=== PATIENT | female | born 1980 | race American Indian/Alaskan Native ===

== ENCOUNTER 2017-03-12 01:57 | Emergency (ER) | payer BC ==
[2017-03-12 03:09] LABS: Bacteria,Urine 1+ /HPF (Negative); Bilirubin,Urine NEG (Negative); Blood,Urine NEG (Negative); Ketones,Urine NEG (Negative); Leukocyte Esterase,Urine SM (Negative); Mucus,Urine 3+ /HPF; Nitrite,Urine NEG (Negative); Protein,Urine <15 mg/dL mg/dL (Negative); Urobilinogen,Urine < 2.0 mg/dL (<2.0)
[2017-03-12 03:21] LABS: Basophils % (Auto) 0.6 % (0.0-1.8); Hematocrit 35.5 % (30.3-42.9); Hemoglobin 11.7 gm/dl (10.1-14.3); Mean Corpuscular HGB Conc 33 % (30-34); Mean Corpuscular Hemoglobin 30 pg (28-32); Mean Corpuscular Volume 91 fl (79-97); Platelet Count 233 K/mm3 (140-440); Red Blood Count 3.89 M/mm3 (3.65-5.03); Red Cell Distribution Width 13.7 % (13.2-15.2); White Blood Count 4.7 K/mm3 (4.5-11.0)
[2017-03-12 03:42] LABS: Alanine Aminotransferase 27 units/L (7-56); Albumin 3.7 g/dL (3.9-5); Albumin/Globulin Ratio 1.3 %; Alkaline Phosphatase 58 units/L (35-129); Anion Gap 15 mmol/L; Blood Urea Nitrogen 7 mg/dL (7-17); Calcium 8.7 mg/dL (8.4-10.2); Carbon Dioxide 24 mmol/L (22-30); Chloride 103.5 mmol/L (98-107); Glucose 84 mg/dL (65-100); Lipase 23 units/L (13-60); Potassium 3.6 mmol/L (3.6-5.0); Sodium 139 mmol/L (137-145); Total Protein 6.6 g/dL (6.3-8.2)
[2017-03-12] MEDS ORDERED: MORPHINE IV ONE (09:26)
[2017-03-12] MEDS ORDERED: NACL 0.9% 1000 ML 1,000 ML IV ONE (09:26)
--- NOTE | 2017-03-12 09:27 | Emergency Department Report ---
ED General Adult HPI - General Chief complaint: Abdominal Pain Stated complaint: DIZZINESS/BODY PAIN/STOMACH SWOLLEN Time Seen by Provider: 03/12/17 09:09 Source: patient, RN notes reviewed Mode of arrival: Ambulatory Limitations: No Limitations - History of Present Illness Initial comments: This is a 36-year-old female. She is previously unknown to me. The patient had a tummy tuck and liposuction performed on 02/18/2017 in the [facility], by Dr. Yates. She reports that she was fine thereafter, and over the past 3 days has developed lower abdominal pain, and swelling. The pain is achy. It increases with palpation and range of motion. It decreases with rest. Positive nausea, no vomiting. No fevers. No chills or chest pain. No shortness of breath. No irritative or obstructive urinary symptoms. Her symptoms are constant, with no exacerbating or relieving factors. -: Gradual Location: abdomen Radiation: non-radiation Quality: aching Consistency: constant Improves with: none Worsens with: none Associated Symptoms: denies other symptoms - Related Data Allergies Allergy/AdvReac Type Severity Reaction Status Date / Time peanut Allergy Itching Verified 03/12/17 02:18 sesame seed Allergy Itching Verified 03/12/17 02:18 shellfish derived Allergy Itching Verified 03/12/17 02:18 ED Review of Systems ROS: Stated complaint: DIZZINESS/BODY PAIN/STOMACH SWOLLEN Other details as noted in HPI Constitutional: denies: fever, malaise Eyes: denies: vision change ENT: denies: epistaxis Respiratory: denies: cough Cardiovascular: denies: chest pain Gastrointestinal: abdominal pain Genitourinary: denies: as per HPI, dysuria Musculoskeletal: denies: back pain Skin: lesions Neurological: as per HPI. denies: headache, weakness Psychiatric: as per HPI ED Past Medical Hx - Past Medical History Previous Medical History?: No - Surgical History Additional Surgical History: tummy tuck, liposection - Social History Smoking Status: Never Smoker Substance Use Type: Alcohol ED Physical Exam - General Limitations: No Limitations General appearance: alert, in no apparent distress - Head Head exam: Present: atraumatic, normocephalic - Eye Eye exam: Present: normal appearance, EOMI. Absent: nystagmus - ENT ENT exam: Present: normal exam, normal orophraynx, mucous membranes moist, normal external ear exam - Neck Neck exam: Present: normal inspection, full ROM. Absent: tenderness, meningismus - Respiratory Respiratory exam: Present: normal lung sounds bilaterally. Absent: respiratory distress, wheezes, rales, rhonchi, stridor, chest wall tenderness, accessory muscle use, decreased breath sounds, prolonged expiratory - Cardiovascular Cardiovascular Exam: Present: regular rate, normal rhythm, normal heart sounds. Absent: bradycardia, tachycardia, irregular rhythm, systolic murmur, diastolic murmur, rubs, gallop - GI/Abdominal GI/Abdominal exam: Present: soft, normal bowel sounds, other (the surgical site appears to be healing well with no obvious redness, pus, streaking or cellulitis. There is no obvious appreciable swelling on my examination, and the wounds appear to be healing well. On the right lateral flank, there are chronic appearing wound, which the patient reports has been present from liposuction burn, with good granulation tissue, with no redness, pus or streaking.). Absent: distended, tenderness, guarding, rebound, rigid, pulsatile mass - Extremities Exam Extremities exam: Present: normal inspection, full ROM. Absent: normal capillary refill, pedal edema, joint swelling, calf tenderness - Back Exam Back exam: Present: normal inspection, full ROM. Absent: tenderness, CVA tenderness (R), CVA tenderness (L), muscle spasm, paraspinal tenderness, vertebral tenderness - Neurological Exam Neurological exam: Present: alert, oriented X3, normal gait, other (Extraocular movements intact. Tongue midline. No facial droop. Facial sensation intact to light touch in the V1, V2, V3 distribution bilaterally. 5 and 5 strength in 4 extremities.. Sensation is intact to light touch in 4 extremities.). Absent : motor sensory deficit - Psychiatric Psychiatric exam: Present: normal affect, normal mood - Skin Skin exam: Present: warm, dry, intact, normal color, other (during the skin, wound, breast examination, I am escorted by nurse Jodi Doherty). Absent: rash ED Course Vital Signs 03/12/17 03/12/17 03/12/17 02:12 09:19 09:20 Temperature Pulse Rate 88 Respiratory 18 Rate Blood Pressure 157/116 O2 Sat by Pulse 100 100 100 Oximetry 03/12/17 03/12/17 03/12/17 09:25 09:31 09:41 Temperature 98.9 F Pulse Rate Respiratory Rate Blood Pressure 129/78 129/78 O2 Sat by Pulse 100 93 Oximetry 03/12/17 03/12/17 03/12/17 09:56 10:01 10:03 Temperature Pulse Rate Respiratory 18 18 Rate Blood Pressure 134/100 O2 Sat by Pulse 100 100 Oximetry 03/12/17 03/12/17 03/12/17 10:20 10:26 11:00 Temperature Pulse Rate Respiratory 18 Rate Blood Pressure 134/100 132/80 O2 Sat by Pulse 100 99 Oximetry 03/12/17 03/12/17 03/12/17 11:30 12:00 12:31 Temperature Pulse Rate Respiratory Rate Blood Pressure 119/72 121/73 121/73 O2 Sat by Pulse 100 100 100 Oximetry 03/12/17 03/12/17 03/12/17 13:01 13:31 14:01 Temperature Pulse Rate Respiratory Rate Blood Pressure 121/73 121/73 121/73 O2 Sat by Pulse 100 100 100 Oximetry - Reevaluation(s) Reevaluation #1: 03/12/17 09:37 differential diagnosis: Hematoma, abscess, postoperative swelling , subacute wound Assessment and plan: 36-year-old female who is approximately 3 weeks status post cosmetic surgery with nonspecific complaints. She is afebrile with reassuring vital signs, the wounds appear to be healing well, and we will obtain an CT scan of the abdomen and pelvis to exclude significant complications. Her physical exam is benign, she has some subacute wounds to the right lateral flank which appear to be healing well, in no acute findings are noted, which I suspect will be the case, the patient will be discharged with instructions to follow up with local wound care, and her plastic surgeon. For her convenience, she will also be given contact information for local plastic surgeons. Reevaluation #2: 03/12/17 14:13 CT scan demonstrates nonspecific fluid collection. There are no intra- abdominal findings noted. It demonstrates a broad well-contained low- attenuation homogenous connection anterior to the abdominal wall but contiguous posteriorly with the wall. It is slightly from the skin by fatty tissue. It is water density. The case is discussed with the plastic surgeon on-call, Dr. Dorsey who indicates he can follow the patient up in the office to further evaluate and manage. Based on the patient's physical exam, presentation, and CAT scan, but this does not appear to be consistent with an abscess or hematoma. The patient will be given the plastic surgeon's contact information, and she'll be instructed to follow up. The plastic surgeon administrative personal assistant feels like this most likely represents a seroma. ED Medical Decision Making - Lab Data Result diagrams: 03/12/17 02:39 03/12/17 02:39 Vital Signs 03/12/17 03/12/17 03/12/17 02:12 09:19 09:20 Temperature Pulse Rate 88 Respiratory 18 Rate Blood Pressure 157/116 O2 Sat by Pulse 100 100 100 Oximetry 03/12/17 03/12/17 09:25 09:31 Temperature 98.9 F Pulse Rate Respiratory Rate Blood Pressure 129/78 O2 Sat by Pulse 100 Oximetry Lab Results 03/12/17 03/12/17 03/12/17 Range/Units 02:39 02:39 02:51 WBC 4.7 (4.5-11.0) K/mm3 RBC 3.89 (3.65-5.03) M/mm3 Hgb 11.7 (10.1-14.3) gm/dl Hct 35.5 (30.3-42.9) % MCV 91 (79-97) fl MCH 30 (28-32) pg MCHC 33 (30-34) % RDW 13.7 (13.2-15.2) % Plt Count 233 (140-440) K/mm3 Lymph % (Auto) 45.0 H (13.4-35.0) % [place] % (Auto) 8.0 H (0.0-7.3) % Eos % (Auto) 6.0 H (0.0-4.3) % Baso % (Auto) 0.6 (0.0-1.8) % Lymph # 2.1 (1.2-5.4) K/mm3 [place] # 0.4 (0.0-0.8) K/mm3 Eos # 0.3 (0.0-0.4) K/mm3 Baso # 0.0 (0.0-0.1) K/mm3 Seg Neutrophils % 40.4 (40.0-70.0) % Seg Neutrophils # 1.9 (1.8-7.7) K/mm3 Sodium 139 (137-145) mmol/L Potassium 3.6 (3.6-5.0) mmol/L Chloride 103.5 (98-107) mmol/L Carbon Dioxide 24 (22-30) mmol/L Anion Gap 15 mmol/L BUN 7 (7-17) mg/dL Creatinine 0.4 L (0.7-1.2) mg/dL Estimated GFR > 60 ml/min BUN/Creatinine Ratio 17.50 % Glucose 84 (65-100) mg/dL Calcium 8.7 (8.4-10.2) mg/dL Total Bilirubin 0.30 (0.1-1.2) mg/dL AST 16 (5-40) units/L ALT 27 (7-56) units/L Alkaline Phosphatase 58 (35-129) units/L Total Protein 6.6 (6.3-8.2) g/dL Albumin 3.7 L (3.9-5) g/dL Albumin/Globulin Ratio 1.3 % Lipase 23 (13-60) units/L Urine Color Yellow (Yellow) Urine Turbidity Clear (Clear) Urine pH 5.0 (5.0-7.0) Ur Specific [place] 1.024 (1.003-1.030) Urine Protein <15 mg/dl (Negative) mg/dL Urine Glucose (UA) Neg (Negative) mg/dL Urine Ketones Neg (Negative) mg/dL Urine Blood Neg (Negative) Urine Nitrite Neg (Negative) Urine Bilirubin Neg (Negative) Urine Urobilinogen < 2.0 (<2.0) mg/dL Ur Leukocyte Esterase Sm (Negative) Urine WBC (Auto) 14.0 H (0.0-6.0) /HPF Urine RBC (Auto) 2.0 (0.0-6.0) /HPF U Epithel Cells (Auto) 9.0 (0-13.0) /HPF Urine Bacteria (Auto) 1+ (Negative) /HPF Urine Mucus 3+ /HPF Urine HCG, Qual Negative (Negative) - Radiology Data Radiology results: report reviewed Critical care attestation.: If time is entered above; I have spent that time in minutes in the direct care of this critically ill patient, excluding procedure time. ED Disposition Clinical Impression: Postop check Disposition: - TO HOME OR SELFCARE Is pt being admited?: No Does the pt Need Aspirin: No Condition: Stable Additional Instructions: Follow up with the listed plastic surgeon within the next week. Follow up with the wound care center within the next 7-10 days. Return to the ER right away with pain, fevers, chills, nausea, vomiting, inability to tolerate liquid feeds , confusion, weakness. Purchase bacitracin [id number], and applied to the right flank wounds. Referrals: PRIMARY CARE, [Primary Care Provider] - 3-5 Days ALLAN DORSEY MD [Staff Physician] - 3-5 Days [facility] [Outside] - 3-5 Days
[2017-03-12] MEDS ORDERED: ZOFRAN IV ONE (09:50)
[2017-03-12] MEDS ORDERED: NACL ONE (12:15)
[2017-03-12 13:16] VITALS: BP 121/73
--- NOTE | 2017-03-12 13:47 | Cat Scan Report ---
CT abdomen and pelvis with contrast: Patient with recent tummy tuck surgery currently complaining of increasing abdominal girth and pain. Following intravenous and oral contrast sections were obtained from the lower chest to the ischium with coronal and sagittal 2-D reformatted images. The visualized lung bases are clear. The abdominal and retroperitoneal organs are unremarkable except for a small superior pole right renal cyst. The partially opacified bowel and mesentery appear normal. There is a broad IUD centrally positioned within the uterus. Both ovaries appear to contain small peripheral cysts. There is a broad well contained low-attenuation, homogeneous collection anterior to the abdominal wall but contiguous posteriorly with the wall. It is slightly from the skin by fatty tissue. It is water density. This is located just below the umbilicus. A similar small focal central collection is noted just above the umbilicus. Impression: The findings appear to represent an abdominal fluid collection that is presumably related to the patient's recent surgery. There is no abscess and no intra-abdominal process identified.
== END 2017-03-12 14:32 | disposition home or self-care (01) ==
LOC: ED 01:57
DX: K91.89 Other postprocedural complications and disorders of digestive system (principal); Z91.010 Allergy to peanuts; Z91.013 Allergy to seafood; Z91.018 Allergy to other foods; Y83.8 Other surgical procedures as the cause of abnormal reaction of the patient, or of later complication, without mention of misadventure at the time of the procedure; Y93.89 Activity, other specified; Y99.8 Other external cause status; Y92.89 Other specified places as the place of occurrence of the external cause
CPT/HCPCS: 36415; 74177; 80053; 81001; 81025; 83690; 85025; 96361; 96374; 96375; 99284; J2270; J2405; J7030; Q9967